=== PATIENT | female | born 1965 | race Caucasian/White ===

== ENCOUNTER 2018-08-05 17:06 | Emergency (ER) | payer SELFPAY ==
[~2018-08-05] VITALS: Ht 180.3 cm; Wt 69.4 kg
[2018-08-05 17:06] VITALS: BP 153/77
== END 2018-08-05 17:56 | disposition home or self-care (01) ==
LOC: ER 17:08
DX: S91.051D Open bite, right ankle, subsequent encounter (principal); W55.01XD Bitten by cat, subsequent encounter; Z60.2 Problems related to living alone
CPT/HCPCS: 99281; A4606; Z7610; Z7502